=== PATIENT | male | born 1995 | race Caucasian/White ===

== ENCOUNTER 2025-02-21 17:35 | Inpatient (IN) | payer OTHER ==
[2025-02-21 18:03] VITALS: BMI 20.7
[2025-02-21] MEDS ORDERED: guaiFENesin 600 MG TABLET.ER (FP) PO PRN (18:42)
[2025-02-21] MEDS ORDERED: BENZONATATE 200 MG CAPSULE PO PRN (18:42)
[2025-02-21] MEDS ORDERED: MAG HYDROX/AL HYDROX/SIMETH 30 ML UNIT-DOSE CUP PO PRN (18:42)
[2025-02-21] MEDS ORDERED: LOPERAMIDE HCL 2 MG CAPSULE PO PRN (18:42)
[2025-02-21] MEDS ORDERED: BENZOCAINE/MENTHOL (CHLORASEPTIC ) LOZENGE MM PRN (18:42)
[2025-02-21] MEDS ORDERED: BISMUTH SUBSALICYLATE 524 MG/30 ML PO PRN (18:42)
[2025-02-21] MEDS ORDERED: DICYCLOMINE HCL 10 MG CAPSULE PO PRN (18:42)
[2025-02-21] MEDS ORDERED: IBUPROFEN 400 MG TABLET (FP) PO PRN (18:42)
[2025-02-21] MEDS ORDERED: NALOXONE (NARCAN) HCL 4 MG/0.1 ML SPRAY NS PRN (18:42)
[2025-02-21] MEDS ORDERED: ACETAMINOPHEN 325 MG TABLET (FP) PO PRN (18:42)
[2025-02-21] MEDS ORDERED: IBUPROFEN 600 MG TABLET (FP) PO PRN (18:42)
[2025-02-21] MEDS: METHOCARBAMOL 500 MG TABLET PO PRN (22:15)
[2025-02-21] MEDS: MELATONIN 5 MG TABLETS PO SCH (22:15)
[2025-02-21] MEDS: THIAMINE 100 MG TABLET PO SCH (22:15)
[2025-02-21] MEDS: levETIRAcetam 500 MG TABLET (FP) PO SCH (22:15)
[2025-02-21] MEDS: NICOTINE POLACRILEX 2 MG LOZENGE BC PRN (22:22)
[2025-02-22] MEDS: NICOTINE POLACRILEX 2 MG GUM BUC PRN (05:57)
[2025-02-22] MEDS: PRENATAL VITAMINS W/ FOLIC ACID TABLET (FP) PO SCH (10:19)
[2025-02-22] MEDS ORDERED: BUPRENORPHINE HCL 150 MCG, BUPRENORPHINE HCL 75 MCG BC ONE ×2 (11:00→16:00)
[2025-02-22] MEDS: BUPRENORPHINE HCL 150 MCG, BUPRENORPHINE HCL 75 MCG BC ONE (11:42)
[2025-02-22 12:29] LABS: MCHC 31.4 g/dl (32.3-36.5); MEAN CELL VOLUME 89.6 fl (79.0-92.2); MEAN PLT VOLUME 10.1 fl (9.4-12.4); RDW 13.5 % (11.9-15.3)
[2025-02-22 12:44] LABS: GLUCOSE,RANDOM 106.0 mg/dL (74-106)
[2025-02-22 12:45] LABS: TOT PROT 5.7 g/dl (6.4-8.2)
[2025-02-22 12:46] LABS: CO2 28.0 mmol/L (21-32)
[2025-02-22 12:47] LABS: ALK PHOS 62.0 U/L (40-150)
[2025-02-22 12:50] LABS: CREATININE 0.9 mg/dL (0.55-1.3); SGOT/AST 19.0 U/L (5-34); SGPT/ALT 25.0 U/L (0-55)
[2025-02-22] MEDS: GABAPENTIN 300 MG CAPSULE PO SCH (13:08)
[2025-02-23] MEDS: BUPRENORPHINE HCL 150 MCG, BUPRENORPHINE HCL 75 MCG BC SCH (06:00)
[2025-02-23] MEDS: CLOTRIMAZOLE 1% CREAM TP SCH (14:10)
[2025-02-24] MEDS ORDERED: BUPRENORPHINE HCL 450 MCG FILM BC SCH (06:00)
[2025-02-24 18:34] LABS: HIV INTERPRETATION NEGATIVE (NEGATIVE)
[2025-02-25] MEDS: NICOTINE 21 MG/24 HOURS TOPICAL PATCH TD SCH (09:21)
[2025-02-25] MEDS ORDERED: BUPRENORPHINE/NALOXONE 0.5 MG/0.125 MG FILM SL SCH (10:00)
[2025-02-25] MEDS: ONDANSETRON *ODT* 4 MG TABLET SL PRN (17:17)
[2025-02-26] MEDS ORDERED: BUPRENORPHINE/NALOXONE 2 MG/0.5 MG FILM PACKET SL SCH (10:00)
[2025-02-26] MEDS: POLYETHYLENE GLYCOL (HEALTHYLAX) 3350 17 GM PACKET PO PRN (10:54)
[2025-02-26] MEDS: MAGNESIUM HYDROX 2400MG/30ML ORAL SUSPENSION 30 ML CUP PO PRN (19:09)
[2025-02-27] MEDS ORDERED: BUPRENORPHINE/NALOXONE 4 MG/1 MG FILM PACKET SL SCH (06:00)
[2025-02-28] MEDS ORDERED: BUPRENORPHINE/NALOXONE 8 MG/2 MG FILM PACKET SL SCH ×2 (06:00)
[2025-02-28 08:53] VITALS: RESP 16
[2025-02-28 12:37] VITALS: BP 124/76; PULSE 64; TEMP 97.8
== END 2025-02-28 12:40 | disposition other institution (70) | DRG 773 ==
LOC: YASAS 17:35 → Y6N 20:26
PROVIDERS: ADMIT Neuromusculoskeletal Medicine & OMM; ATTEND Counselor Addiction (Substance Use Disorder)
PROC: HZ2ZZZZ Detoxification Services for Substance Abuse Treatment (ICD-10-PCS; principal; 2025-02-21)
DX: F11.23 Opioid dependence with withdrawal (principal); F13.230 Sedative, hypnotic or anxiolytic dependence with withdrawal, uncomplicated; F14.20 Cocaine dependence, uncomplicated; F12.20 Cannabis dependence, uncomplicated; F17.210 Nicotine dependence, cigarettes, uncomplicated; F19.280 Other psychoactive substance dependence with psychoactive substance-induced anxiety disorder; F19.282 Other psychoactive substance dependence with psychoactive substance-induced sleep disorder; F41.9 Anxiety disorder, unspecified; B35.3 Tinea pedis
CPT/HCPCS: 36415; 80053; 85027; 86780; 86803; 87389; 93005; 93010; Q0162

== ENCOUNTER 2025-02-28 12:41 | Inpatient (IN) | payer OTHER ==
[2025-02-28] MEDS ORDERED: NALOXONE HCL 0.4 MG/ML VIAL IVPUSH PRN (15:06)
[2025-02-28] MEDS ORDERED: IBUPROFEN 400 MG TABLET (FP) PO PRN (15:06)
[2025-02-28] MEDS ORDERED: IBUPROFEN 600 MG TABLET (FP) PO PRN (15:06)
[2025-02-28] MEDS ORDERED: LOPERAMIDE HCL 2 MG CAPSULE PO PRN (15:06)
[2025-02-28] MEDS ORDERED: NALOXONE (NARCAN) HCL 4 MG/0.1 ML SPRAY NS PRN (15:06)
[2025-02-28] MEDS ORDERED: BENZONATATE 200 MG CAPSULE PO PRN (15:06)
[2025-02-28] MEDS ORDERED: ACETAMINOPHEN 325 MG TABLET (FP) PO PRN (15:06)
[2025-02-28] MEDS ORDERED: guaiFENesin 600 MG TABLET.ER (FP) PO PRN (15:06)
[2025-02-28] MEDS ORDERED: BENZOCAINE/MENTHOL (CHLORASEPTIC ) LOZENGE MM PRN (15:06)
[2025-02-28] MEDS: NICOTINE POLACRILEX 2 MG GUM BC PRN (16:56)
[2025-02-28] MEDS: levETIRAcetam 500 MG TABLET (FP) PO SCH (22:23)
[2025-02-28] MEDS: MELATONIN 5 MG TABLETS PO SCH (22:23)
[2025-02-28] MEDS: THIAMINE 100 MG TABLET PO SCH (22:23)
[2025-02-28] MEDS: GABAPENTIN 300 MG CAPSULE PO SCH (22:23)
[2025-03-01] MEDS: POLYETHYLENE GLYCOL (HEALTHYLAX) 3350 17 GM PACKET PO PRN (05:44)
[2025-03-01] MEDS: PRENATAL VITAMINS W/ FOLIC ACID TABLET (FP) PO SCH (09:24)
[2025-03-01] MEDS: METHOCARBAMOL 500 MG TABLET PO PRN (09:25)
[2025-03-01] MEDS: NICOTINE 21 MG/24 HOURS TOPICAL PATCH TD SCH (11:39)
[2025-03-01] MEDS: MAGNESIUM HYDROX 2400MG/30ML ORAL SUSPENSION 30 ML CUP PO PRN (18:23)
[2025-03-02] MEDS: hydrOXYzine PAMOATE 25 MG CAPSULE (FP) PO PRN (10:24)
[2025-03-02] MEDS: GABAPENTIN 400 MG CAPSULE PO SCH (21:12)
[2025-03-02] MEDS: MELATONIN 5 MG TABLETS PO SCH (21:13)
[2025-03-04] MEDS: MAG HYDROX/AL HYDROX/SIMETH 30 ML UNIT-DOSE CUP PO PRN (09:58)
[2025-03-04] MEDS ORDERED: guaiFENesin 600 MG TABLET.ER (FP) PO PRN (14:52)
[2025-03-07 09:28] VITALS: BP 100/62; PULSE 60; RESP 12; TEMP 97.5
== END 2025-03-07 11:03 | disposition home or self-care (01) | DRG 772 ==
LOC: YASAS 12:41 → Y3NR 12:48 → Y3E 03-01 10:16 → Y3NR 03-04 20:03
PROVIDERS: ADMIT Psychiatry & Neurology Pain Medicine; ATTEND Psychiatry & Neurology Pain Medicine
PROC: HZ42ZZZ Group Counseling for Substance Abuse Treatment, Cognitive-Behavioral (ICD-10-PCS; principal; 2025-02-28)
DX: F11.20 Opioid dependence, uncomplicated (principal); F13.20 Sedative, hypnotic or anxiolytic dependence, uncomplicated; F14.20 Cocaine dependence, uncomplicated; F12.20 Cannabis dependence, uncomplicated; F17.210 Nicotine dependence, cigarettes, uncomplicated; F19.280 Other psychoactive substance dependence with psychoactive substance-induced anxiety disorder; F19.282 Other psychoactive substance dependence with psychoactive substance-induced sleep disorder
CPT/HCPCS: 36415; 86803